=== PATIENT | female | born 1995 | race Hispanic/Latino ===

== ENCOUNTER 2025-04-02 16:17 | Emergency (ER) | payer SELFPAY ==
[2025-04-02 16:35] VITALS: BP 133/75; PULSE 70; RESP 16; TEMP 36.7; O2SAT 100
--- NOTE | 2025-04-02 17:08 | ED.FEMALEGU ---
HPI - Female Genitourinary General Chief complaint: Urogenital-Female Stated complaint: urinary irritation Time Seen by Provider: 04/02/25 16:55 Source: patient, family and RN notes reviewed Mode of arrival: ambulatory Limitations: no limitations and language barrier ([employer] used) History of Present Illness HPI Narrative: 29-year-old female presents [facility] Care complaining of urinary symptoms for 2 days. Patient reports having suprapubic pain, burning with urination, frequency, hesitancy. Patient has been taking azo [id number] to help with the burning. Patient denies any fevers, body aches, chills, nausea, vomiting, diarrhea. Patient reports also having headache. Patient has a history UTIs. Denies any significant past medical history. Patient denies any vaginal bleeding, vaginal discharge, vaginal pain, any chance of , or any concerns for STDs. Related Data Allergies Allergy/AdvReac Type Severity Reaction Status Date / Time No Known Allergies Allergy Verified 04/02/25 16:43 Review of Systems Review of Systems: CONSTITUTIONAL: Denies fever, chills, body aches, or sweats. EYES: Denies visual changes, redness, or discharge. ENT: Denies rhinorrhea, congestion, sore throat, or otalgia. CARDIOVASCULAR: Denies chest pain, palpitations, or edema. RESPIRATORY: Denies cough or dyspnea. GASTROINTESTINAL: Denies abdominal pain, nausea, vomiting, or diarrhea. GENITOURINARY: Positive for dysuria, increased frequency, hesitancy, suprapubic pain. Negative for hematuria. SKIN: Denies rash or itching. MUSCULOSKELETAL: Denies back pain, joint pain, or myalgia. NEUROLOGIC: Denies headache, numbness, or weakness. PSYCHIATRIC: Denies anxiety or depression. All other systems reviewed are negative, except as documented in HPI. PMFSH Comments At the time of my signature, I reviewed and agree with the nursing past medical, surgical, social, and family history. There is no relevant family history pertinent to the patient complaint. Exam Narrative: GENERAL: This is a well-nourished, well-developed adult, in no apparent distress. They are non ill-appearing, nontoxic appearing. HEAD: normocephalic, atraumatic. EYES: Sclera clear/white. Vision is grossly intact. Conjunctiva normal bilaterally. Extraocular movements intact. EARS: External ears normal,Hearing grossly intact. NOSE: External nose normal THROAT: Mucous membranes moist NECK: Normal range of motion CARDIOVASCULAR: Regular rate and rhythm without murmurs, gallops, or rubs. RESPIRATORY: Clear to auscultation. Breath sounds equal bilaterally. No wheezes, rales, or rhonchi. GASTROINTESTINAL: Abdomen soft, flat, suprapubic tenderness to palpation, nondistended. Bowel sounds are active. No hepato-splenomegaly, or palpable masses. No guarding or rigidity. No rebound tenderness. SKIN: warm, Dry, intact with no suspicious lesions or rash, good texture and turgor. NEURO: awake, alert, and oriented to person, place and time. There were no obvious focal neurologic abnormalities. EXTREMITIES: No joint tenderness, effusion, or edema noted. BACK: Nontender without deformity. No CVA tenderness. Course Course Emergency Course: Portions of this record may have been created with voice recognition software Level of Care: Express Care Visit Vital Signs Vital signs: Vital Signs Temperature 98.1 F 04/02/25 16:35 Pulse Rate 70 04/02/25 16:35 Respiratory Rate 16 04/02/25 16:35 Blood Pressure 133/75 04/02/25 16:35 Pulse Oximetry 100 04/02/25 16:35 Oxygen Delivery Room Air 04/02/25 16:35 Temperature 98.1 F 04/02/25 16:35 Pulse Rate 70 04/02/25 16:35 Respiratory Rate 16 04/02/25 16:35 Blood Pressure 133/75 04/02/25 16:35 Pulse Oximetry 100 04/02/25 16:35 Oxygen Delivery Room Air 04/02/25 16:35 MDM - Female Genitourinary MDM Narrative Medical decision making narrative: Urine hCG negative for . Unable to obtain urine dipstick because patient took AZO prior to arrival which may alter the results of her urine dipstick. Urine culture pending. Given the patient's symptoms it is likely consistent with cystitis. Treat empirically with cephalexin. Discussed physical exam findings. Advised supportive measures and signs/symptoms to go to the ER. Pt is appropriate for outpt treatment and f/u. Differential Diagnosis Differential diagnosis: Likely urinary tract infection, cystitis and other (Pyelonephritis) Lab Data Attestation: I reviewed the patient's lab results. Discharge Plan Discharge Clinical Impression: Urinary tract infection Patient Disposition: Home Condition: Stable Instructions: Antibiotic Form, Urinary Tract Infection in Women (ED) Additional Instructions: Take the antibiotic as prescribed The urine will be sent of for a culture to identify what type of bacteria is causing your infection. If the culture shows that the antibiotic will not get rid of your infection, you will be notified and a new antibiotic will be called in for you. Increase water intake you will need to follow up with your PCP 3-5 days. Go to the ER for any worsening symptoms, abdominal pain, fevers, nausea, vomiting, or any other concerns Bystrom el antibi?saida seg?n lo prescrito. Se analizar? la orina para un cultivo que identificar? el tipo de bacteria que causa la infecci?n. Si el cultivo muestra que el antibi?saida no elimina la infecci?n, se le notificar? y se le recetar? un nuevo antibi?saida. Aumente la ingesta de agua. Deber? realizar maryanne consulta de seguimiento con doherty m?dico de cabecera cada 3 a 5 d?as. Acuda a urgencias si presenta cualquier empeoramiento de los s?ntomas, dolor abdominal, fiebre, n?useas, v?mitos o cualquier otra inquietud. Patient Language: Telugu Prescriptions: New cephalexin 500 mg capsule 500 mg PO BID 7 Days Qty: 14 0RF Follow-up/Referrals: UNKNOWN,DOCTOR [Primary Care Provider] - Stand Alone Forms: Work/School Release IP Time of Disposition: 17:05
[2025-04-02 17:23] LABS: BEDSIDEPREGUCG Negative (Negative)
== END 2025-04-02 17:20 | disposition home or self-care (01) ==
DX: N39.0 Urinary tract infection, site not specified (principal)
CPT/HCPCS: 81025; 87086; 99203; G0463